=== PATIENT | male | born 1965 | race Caucasian/White ===

== ENCOUNTER → 2016-06-06 | Outpatient (CLI) | payer OTHER ==
[~2016-06-06] MED LIST: AMLODIPINE BESYL5 MG PO; ANEXSIA 7.5/3251 TA1 PO; APAP325 MG PO; ASMANEX220 MC1 INH; BACTRIM DS TAB1 EACH PO; BENADRYL25 M3 PO; BENZONATATE PO; CEFTIN500 MG PO; CLARITIN10 M3 DOB; CLARITIN10 M3 PO; DAYPRO600 M1 PO; DELTASONE20 MG PO; DITROPAN5 MG PO; DULCOLAX10 MG PR; EFFEXOR50 MG PO; FLONASE 0.05% N16 G1; HYDROCODON-ACE1 EAC9 PO; HYDROXYZINE HCL50 MG PO; IRON SUPPLEMENT1 TAB PO; LIORESAL10 MG PO; LISINOPRIL-HCTZ1 T15 PO; LISINOPRIL10 MG PO; MOBIC PO; MUCINEX D ER T1 EAC1 PO; NO MEDICATIONS; OMEPRAZOLE20 M2 PO; OMEPRAZOLE40 M1 PO; PREDNISONE PO; SINGULAIR5 MG PO; VOLTAREN75 MG PO; ZESTORETIC 20-1 EAC2 PO; ZESTORETIC 20-1 EACH PO; ZITHROMAX PO
--- NOTE | ~2016-06-06 | CR63 ---
[facility] A Service of [facility] RADIOLOGY TEXT RESULTS PATIENT: JAIMEE PALMER JR LOCATION: [facility] : 63 UNIT #: [id number] AGE: [address]: ELVER CHAVEZ SEX: M ORDER DR: [id number] [facility] [address] [place], [place] [address] [id number] O MR#: [id number] Acc #: [id number] NAME: JAIMEE PALMER : 1965 SEX: M STUDY DATE/TIME: 06/06/2016 8:52 UNIT: [facility] ROOM: STUDY DESCRIPTION: CR Chest 2 View Attending Physician: Pete Lazcano Referring Physician: Pete Lazcano Ordering Physician: Pete Lazcano Primary Care Physician: Haily Lyman M.D. MEDICAL IMAGING REPORT This report is preliminary unless electronic signature is present EXAM Chest PA and lateral, 06/06/2016 HISTORY Cough and difficulty breathing for 2 weeks. Benign essential hypertension. FINDINGS The cardiac and mediastinal structures are stable compared with 12/12/2015. There is dense airspace consolidation in the left lower lobe characteristic of pneumonia and there is infiltrate and/or atelectasis in the right lower lobe. Diffuse interstitial infiltrates are noted superimposed upon a background of chronic fibrosis. There are no pleural effusions. No pneumothorax. Moderate-sized hiatal hernia is noted. IMPRESSION 1. Airspace consolidation in the left lower lobe characteristic of pneumonia. Infiltrate or atelectasis right lower lobe. 2. Interstitial infiltrates seen diffusely throughout both lungs have increased compared with 12/12/2015 suggesting interstitial pneumonia superimposed upon chronic fibrosis. 3. Hiatal hernia. Dictated by... Justo Beltre M.D. THIS IS AN ELECTRONICALLY VERIFIED REPORT Justo Beltre M.D. at 06/07/2016 8:04 AM TEGAN/regis TD: 06/06/2016 10:58 JOB #: [id number] MEDICAL IMAGING REPORT [facility] A Service of [facility] RADIOLOGY TEXT RESULTS PATIENT: JAIMEE PALMER JR LOCATION: [facility] : 63 UNIT #: [id number] AGE: [address]: ELVER CHAVEZ SEX: M ORDER DR: Page 1 of 1 COPY
== END | disposition home or self-care (01) ==
LOC: CRAD 08:48
DX: R05 Cough (principal); J18.1 Lobar pneumonia, unspecified organism; R91.8 Other nonspecific abnormal finding of lung field; K44.9 Diaphragmatic hernia without obstruction or gangrene
CPT/HCPCS: 71020

== ENCOUNTER → 2016-07-09 | Outpatient (CLI) | payer OTHER ==
--- NOTE | ~2016-07-09 | CT57 ---
[facility] A Service of [facility] RADIOLOGY TEXT RESULTS PATIENT: JAIMEE PALMER JR LOCATION: [facility] : 63 UNIT #: [id number] AGE: [address]: Shahbaz Milian MD SEX: M ORDER DR: [id number] [id number] [facility] [place], [place] [address] [id number] O MR#: [id number] [facility] #: [id number] NAME: JAIMEE PALMER : 1965 SEX: M STUDY DATE/TIME: 07/09/2016 0854 UNIT: [facility] ROOM: STUDY DESCRIPTION: CT Chest Wo Cont Attending Physician: Shahbaz Milian M.D. Ordering Physician: Shahbaz Milian M.D. Primary Care Physician: Haily Lyman M.D. MEDICAL IMAGING REPORT This report is preliminary unless electronic signature is present EXAM CT chest without contrast, 07/09/2016, 0854 hours. CLINICAL HISTORY Cough with intermittent shortness of air for 3 months. Pneumonia diagnosed 2 weeks ago. Diagnosis of eosinophilic pneumonia. COMPARISON CT chest, 02/08/2016. TECHNIQUE Routine, helical, noncontrasted chest CT images were obtained from the thoracic inlet through the adrenal glands. Patient then underwent high-resolution protocol exam with 1 mm thick high-resolution images at 10 mm intervals in the supine position at full inspiration. Additional supine expiratory phase high-resolution images were performed. The patient was then turned to the prone position for similar high-resolution images through the lung bases only. No contrast was administered. Total exam DLP 809 mGy-cm. This CT exam was performed with one or more of the following radiation dose reduction techniques: automatic exposure control, adjustment of mA and/or kV according to patient size, and iterative reconstruction. FINDINGS Images through the thoracic inlet demonstrate no adenopathy. The thyroid gland is normal. Images through the chest demonstrate no pathologically enlarged nodes. The aorta, pulmonary arteries, cardiac chambers are normal. There is a moderate-sized paraesophageal hiatal hernia without change. There is no pericardial or pleural fluid. [facility] A Service of [facility] RADIOLOGY TEXT RESULTS PATIENT: JAIMEE PALMER JR LOCATION: [facility] : 63 UNIT #: [id number] AGE: [address]: Shahbaz Milian MD SEX: M ORDER DR: The routine lung window images again demonstrate basilar predominant interstitial and ground-glass change bilaterally with traction bronchiectasis in the lower lobes. There is subtle increase in ground-glass opacities at the far upper lobe on the left medially and posteriorly on the right. The high-resolution portion of the exam again demonstrates subpleural interstitial thickening with associated ground-glass change involving the upper, mid and lower lungs, but more severely involving the lung bases. There is no definite honeycombing, but there is traction bronchiectasis in the lower lobes. This diffuse interstitial process is stable in the mid and lower lungs. There is slight increase in patchy ground-glass density at the upper lobes, left greater than right. The expiratory phase images demonstrates significant motion artifact and assessment for air trapping cannot be made. IMPRESSION Again demonstrated is a diffuse basilar predominant process mixed with interstitial thickening and ground-glass change similar to 02/08/2016. There is subtle increasing ground-glass opacity in the far upper lobes, left greater than right. The other findings are stable. There is stable traction bronchiectasis. There is no adenopathy or pleural fluid. Dictated by... Jen Newell M.D. THIS IS AN ELECTRONICALLY VERIFIED REPORT Jen Newell M.D. at 07/09/2016 2:28 PM LUPILLO/ladarius TD: 07/09/2016 11:51 JOB #: [id number] MEDICAL IMAGING REPORT Page 1 of 1 COPY
== END | disposition home or self-care (01) ==
LOC: CCAT 08:29
DX: J82 Pulmonary eosinophilia, not elsewhere classified (principal); R06.00 Dyspnea, unspecified; J47.9 Bronchiectasis, uncomplicated
CPT/HCPCS: 71250

== ENCOUNTER → 2016-07-10 | Day surgery (SDC) | payer OTHER ==
--- NOTE | ~2016-07-10 | OR ---
Unit #: [id number] #: [id number] Patient: JAIMEE PALMER JR [id number] [address] [place], [place] [address] [id number] O MR#: [id number] NAME: JAIMEE PALMER JR ROOM: Date of Procedure: 07/10/2016 Admission Date: 07/10/2016 Surgeon: Shahbaz Milian M.D. : 1965 Attending Physician: Shahbaz Milian M.D. Primary Care Physician: Haily Lyman M.D. OPERATIVE REPORT PROCEDURE PERFORMED Flexible fiberoptic bronchoscopy. 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 Rule out bacterial pneumonia and other causes as he is immunocompromised. SEDATION MAC. CONDITION AFTER PROCEDURE Stable, he was somewhat hypoxemic even prior to the procedure, he has oxygen at home, but uses it nocturnally. COMPLICATION Zero. DESCRIPTION OF PROCEDURE The patient was brought to the endoscopy suite and monitored for heart rate, blood pressure, and saturations. Sedated with MAC, please see their notes. Anesthetized with 2% lidocaine in both nares and viscous lidocaine was applied to his right naris. Bronchoscope was introduced without difficulty. Vocal cords were visualized. There were normal configuration and motion, anesthetized x2. Main trachea was intubated. Main airways were anesthetized. He had mucopurulent secretions identified and removed. He did have some hypoxemia so bronchoscopy was performed quickly. All subsegments were identified. No definite tumor. BAL was performed in the area of the biggest infiltrate, which was his lingula. It was performed in standard fashion with 60 mL aliquots instilled x2 with good return. The bronchoscope was removed without difficulty, and the patient was in stable condition post-procedure on the way to recovery room. Of note, he did have fever and leukocytosis with a white blood cell count of 23,000. No eosinophilia was noted. He will receive one dose of IV antibiotics, one dose of IV steroids, and complete a course of Levaquin orally. He may require oxygen 24 hours a day, he does have oxygen at home and this change in order will be made if needed. Dictated by... Shahbaz Milian M.D. Unit #: [id number] #: [id number] Patient: JAIMEE PALMER JR/tania TD: 07/10/2016 12:25 JOB #: [id number] CC: Pino/erasto Please Delete OPERATIVE REPORT Page 1 of 1 X Shahbaz Milian MD PROCEDURE OPERATIVE NOTE
[2016-07-10 10:09] LABS: BASOPHIL# 0.1 X10e3 (0-0.3); BASOPHIL% 0.5 % (0-2.5); DIFF IND YES; EOSINOPHIL% 0.1 % (0.0-7.0); HEMATOCRIT 41.2 % (38.0-50.0); HEMOGLOBIN 13.4 gm/dL (13.0-16.0); LYMPHOCYTE# 2.5 X10e3 (1.0-3.5); LYMPHOCYTE% 10.6 % (17.0-45.0); MEAN CELL VOLUME 90.9 FL (83-96); MEAN CORPUSCULAR HEMOGLOBIN 29.6 PG (28-34); MEAN CORPUSCULAR HGB CONC 32.6 g/dL (30-36); MEAN PLATELET VOLUME 7.1 FL (6.5-11.5); MONOCYTE# 1.3 X10e3 (0-1.0); MONOCYTE% 5.6 % (3.0-12.0); NEUTROPHIL# 19.4 X10e3 (1.5-7.1); NEUTROPHIL% 83.2 % (40-75); PLATELET COUNT 362 X10e3 (140-420); RED BLOOD COUNT 4.53 X10e (3.90-5.60); RED CELL DISTRIBUTION WIDTH 14.7 % (11.0-15.5); WHITE BLOOD COUNT 23.4 X10e3 (4.0-10.5)
[2016-07-10 10:24] LABS: PARTIAL THROMBOPLASTIN TIME 23.1 SECONDS (23.5-31.3); PROTHROMBIN TIME (PATIENT) 10.2 SECONDS (9.6-11.5)
[2016-07-10 10:27] LABS: PLATELET ESTIMATE NORMAL (NORMAL)
== END | disposition home or self-care (01) ==
LOC: COPS 09:06
PROVIDERS: Internal Medicine
DX: J82 Pulmonary eosinophilia, not elsewhere classified (principal); K21.9 Gastro-esophageal reflux disease without esophagitis; M19.90 Unspecified osteoarthritis, unspecified site; I25.10 Atherosclerotic heart disease of native coronary artery without angina pectoris; I10 Essential (primary) hypertension; J96.11 Chronic respiratory failure with hypoxia; J31.0 Chronic rhinitis; C61 Malignant neoplasm of prostate; Z87.01 Personal history of pneumonia (recurrent); Z87.891 Personal history of nicotine dependence; Z80.1 Family history of malignant neoplasm of trachea, bronchus and lung; Z71.6 Tobacco abuse counseling; Z79.51 Long term (current) use of inhaled steroids; Z79.899 Other long term (current) drug therapy; Z79.1 Long term (current) use of non-steroidal anti-inflammatories (NSAID)
CPT/HCPCS: 82947; 85025; 85610; 85730; 87070; 87077; 87102; 87106; 87116; 87205; 87206; 87252; 87254; 88108; 88305; 88312; 89190; J0171; J1956; J2250; J2930